=== PATIENT | male | born 1950 | race Caucasian/White ===

== ENCOUNTER 2023-03-27 19:53 | Inpatient (IN) | payer MEDICARE, SELFPAY ==
[2023-03-27] VITALS (10 sets, daily range): BP systolic 110–140; BP diastolic 57–91; BMI 24.2
[2023-03-27 12:47] LABS: Glucose - Point of Care 426 mg/dl (70-99)
[2023-03-27] MEDS: NSS 1000 IV ×2 (12:59→21:48)
[2023-03-27 13:05] LABS: % Basophils 0.6 % (0-2); % Immature Granulocytes 1.8 % (0-0.5); % Lymphocytes 33.1 % (20.5-51.1); % Monocytes 4.2 % (1.7-9.3); % Neutrophils 57.3 % (42.2-75.2); Absolute Eosinophils 0.2 10^3/uL (0-0.7); Absolute Immature Granulocytes 0.1 10^3/uL (0-0.05); Absolute Lymphocytes 1.7 10^3/uL (1.2-3.4); Absolute Monocytes 0.2 10^3/uL (0.1-0.6); Absolute Neutrophils 2.9 10^3/uL (1.4-6.5); Hematocrit 39.6 % (39.0-52.0); Hemoglobin 13.6 g/dL (13.0-18.0); Mean Corp Hgb Conc. 34.3 g/dL (33.0-37.0); Mean Corpuscular Volume 87.4 fL (80.0-94.0); Mean Platelet Volume 8.9 fL (7.4-10.4); Nucleated Red Blood Cells % 0 % (-); Platelet Count 218 10^3/uL (130-400); Red Blood Cell Count 4.53 10^6/uL (4.70-6.10)
[2023-03-27 13:20] LABS: ALT (SGPT) 26 U/L (0-50); AST (SGOT) 23 U/L (17-59); Albumin 4.4 g/dl (3.5-5.0); Alcohol 266 mg/dl; Alkaline Phosphatase 85 U/L (38-126); Blood Urea Nitrogen 23 mg/dl (9-20); Calcium 9.7 mg/dl (8.4-10.2); Carbon Dioxide 19 mmol/L (22-30); Chloride 103 mmol/L (98-107); Estimated Creatinine Clearance 43 ml/min; Glucose 407 mg/dl (70-99); Potassium 5.3 mmol/L (3.5-5.1); Sodium 135 mmol/L (135-145); Total Bilirubin 0.7 mg/dl (0.2-1.3); Total Protein 6.9 g/dl (6.3-8.2); eGFR 49.16
--- NOTE | 2023-03-27 14:28 | ED.GENMED ---
History of Present Illness
General
Chief Complaint: Alcohol Problem
Source: patient
Exam Limitations: none
Time Seen by Provider: 03/27/23 12:46
Nursing documentation reviewed up to this point in time: agreed with
Travel History
Have you had any contact with someone who has COVID-19?: No
Do you have any symptoms of coronavirus? Fever > 100 degrees, chills, cough, shortness of breath, sore throat, loss of taste or smell, muscle aches, or headache?: No
History of Present Illness
History of Present Illness:
72-year-old male with history of IDDM, PE, HTN, Dee's esophagus, GERD, pancreatitis, IDDM, alcohol abuse, anxiety presents via EMS reportedly consuming 1-1/2 bottles of vodka in the past 24 hours, girlfriend called EMS as she checked his blood
sugar and it was reported to be in the 400s, she gave him 10 units of insulin and the blood sugar lowered to the 300s.
He denies any recent contributive factors, states he simply binge drinks every 'once in a while.' The last time he did so was a few months ago. He admits to drinking the vodka. Denies doing any recreational drugs.
Patient denies feeling weak or dizzy, denies headache, chest pain or shortness of breath. Denies abdominal pain. He does feel nauseous.
Past History
Past History
ED Past Medical History: HTN, IDDM, Other (Chronic pancreatitis ) and Other (pancreatitis); Negative KS
ED Past Surgical History: Orthopedic and Urological; Negative Appendectomy, Bowel resection, Brain, Cardiac or Cholecystectomy
Social History
Tobacco: Former smoker
Alcohol: Former
Drug: None
Personal:
Living: with family
Employment: Employed
Family History
Family History: Diabetes
Review of Systems
Review of Systems
Allergies reviewed?: Yes
All Other Systems: ROS reviewed and negative except as documented in HPI and ROS
Constitutional: Denies fever
Respiratory: Denies trouble breathing
Cardiac: Denies chest pain
ABD/GI: Reports nausea; Denies abdominal pain or diarrhea
: Denies dysuria, difficulty voiding or urgency
Musculoskeletal: Reports no symptoms
Skin: Reports no symptoms
Neurological: Reports no symptoms
Psychiatric: Denies no symptoms, depression or anxiety
Phy Exam
Physical Exam
Physical Exam:
GENERAL: No acute distress. A&Ox3.
CONSTITUTIONAL: Afebrile.
EYES: Prosthetic right eye, conjunctivae normal
ENMT: moist mucus membranes, Pharynx nl
RESPIRATORY: Regular respirations, nonlabored, lungs clear.
CARDIOVASCULAR: Regular rate and rhythm, no murmurs, no rubs.
GI: Soft, nontender, normal BS
MUSCULOSKELETAL: Moves with ease. Well perfused.
SKIN: Warm, dry, pink
PSYCH: Normal mood and affect. Well kept, interactive and appropriate
NEUROLOGIC: Awake, alert and oriented. No focal neurological deficits
Scores
Withdrawal Assessment of Alcohol
Withdrawal Assessment Completed?: Yes
Nausea and Vomiting: Intermittent nausea with dry heaves (vomited twice)
Tactile Disturbances: None
Tremor: Moderate, with patient's arms extended
Auditory Disturbances: Not present
Paroxysmal Sweats: No sweat visible
Visual Disturbances: Not present
Anxiety: Mild anxiety
Headache, Fullness in Head: Not present
Agitation: Normal activity
Orientation and clouding of sensorium: Oriented and can do serial additions
Total CIWA Score: 9
Alcohol Withdrawal Medication Recommendation: Equal to MSAS Score 5-7. Lorazepam 1mg IV or PO NOW & re-assess q2hrs
Course
Orders/Labs/Results
Orders:
Orders
03/27/23 12:55
0.9% Sodium Chloride 1000 ml [Nss] 1,000 ml IV BOLUS
03/27/23 12:58
Alcohol Urgent
Complete Blood Count/With Diff Urgent
Comprehensive Metabolic Panel Urgent
Glycohemoglobin (HgbA1c) Urgent
Magnesium Urgent
Comment: ADD ON
Phosphorus Urgent
Comment: ADD ON
03/27/23 14:28
Ondansetron Injectable [Zofran] 4 mg IV NOW STA
03/27/23 14:29
Ondansetron Injectable [Zofran] 4 mg .ROUTE .STK-MED ONE
03/27/23 Dinner
Clear Liquid
At Your Request: Full Participation
03/27/23 16:32
Insulin Aspart [NOVOLOG vial] 8 units SC NOW STA
03/27/23 18:34
Lorazepam [Ativan] 1 mg IV NOW STA
03/27/23 18:50
UA Reflex to Culture [Urinalysis Reflex To Culture] Urgent
03/27/23 18:51
Bedside Glucose Monitoring-ONCE As Directed
03/27/23 19:02
Add On- LAB Routine
Tests Added?: phosphorous, magnesium
03/27/23 19:04
CT Head W/o Iv Contrast Urgent
Comment:
Reason For Exam: s/p fall, hit head
03/27/23 19:06
0.9% Sodium Chloride 500 ml [Nss] 500 ml IV BOLUS
Insulin Glargine Lantus [Lantus] 20 units Subcutaneous Insulin Syringe [Syringe-Insulin] 0 unit SC ONCE
Insulin Glargine Lantus [Lantus] 32 units Subcutaneous Insulin Syringe [Syringe-Insulin] 0 unit SC ONCE
03/27/23 19:07
Admit/Transfer Patient As Directed
Co-Sign Provider:
Level of Care: Inpatient admission
Assign to:: Telemetry
Physician / Group: Kimberly Olivera
Diagnosis: alcohol withdrawal; hyperglycemia
Reason for Telemetry: Chest Pain syndromes
Date to Stop Telemetry: 03/29/23
Time to Stop Telemetry: 11:00
Reason for Hospitalization: alcohol withdrawal; hyperglycemia
Expected length of stay greater than two midnights?: Yes
ELOS- Estimated Length of Stay in days: 3
I certify the patient meets the requirements for IP care: Yes
03/27/23 19:11
Code Status As Directed
Resuscitation Status: Full Code
03/27/23 19:13
Pantoprazole [Protonix IV] 40 mg IV NOW STA
03/27/23 21:11
0.9% Sodium Chloride 1000 ml [Nss] 1,000 ml IV 125 mls/hr
0.9% Sodium Chloride [Nss (Preservative Free)] See Protocol IV PRN PRN
Acetaminophen [Tylenol] 650 mg PO Q4HPRN PRN
Albuterol [ProAIR HFA INHALER] 1 puff INH R Q4HPRN PRN
Dextrose 50%-Water [Dextrose 50% Syringe] 12.5 grams IV [id number] PRN
FOLic ACID [Folvite] 1 mg 0.9% Sodium Chloride 50 ml [Nss] 50 ml IV DAILYPRN
Glucagon [GlucaGen] 1 mg IM PRN PRN
Lorazepam [Ativan] 1 mg IV Q1HPRN PRN
Lorazepam [Ativan] 1 mg PO Q2HPRN PRN
Lorazepam [Ativan] 2 mg IV Q1HPRN PRN
Ondansetron Injectable [Zofran] 4 mg IV Q6HPRN PRN
Thiamine Injection 200 mg IV Q12
03/27/23 21:11
Add On- LAB Routine
Tests Added?: HgbA1C to today's lab
Case Management Consult Once
Case Management Consult: Other
Comment: Substance abuse counseling; also patient states didn't take lantus because insurance didn't cover
DIETARY CONSULT Routine
Reason for Consult: Nutrition support, possible refeeding guidelines
Activity As Directed
Activity Level: As Tolerated
Bedside Glucose Monitoring As Directed
Frequency: AC&HS
Comment: Change to q6h if pt on TPN, tube feeding or not eating
MSAS SCORE As Directed
MSAS Score 0-4: Repeat MSAS every 2 hours until 0-4 for three consecutive assessments, then every 4 hours x 48
hours.
MSAS Score 5-7: For MILD withdrawl symptoms. Repeat MSAS and RASS every 2 hours
MSAS Score 8-11: For MODERATE withdrawal symptoms. Repeat MSAS and RASS every 1 hour. Consider ICU or IMU
level of care.
MSAS Score > 11: For SEVERE withdrawal symptoms. Repeat MSAS and RASS every 1 hour. Notify provider, consider
ICU level of care.
MSAS Additional Instructions: If no improvement or no decrease in score from severe to moderate within 12
hours, consult psychiatry
MSAS Notify Provider: Notify provider if patient requires more than 10 mg of Lorazepam in eight hour period.
Vital Signs As Directed
Frequency: Per unit guidelines
DX Deep Vein Thrombosis Video Routine
03/27/23 22:00
Alprazolam [Xanax] 0.25 mg PO HS
03/28/23 06:31
Complete Blood Count/No Diff IN AM
Comprehensive Metabolic Panel IN AM
Magnesium IN AM
03/28/23 07:30
Insulin Aspart Corrective Mod [Novolog Flexpen-Moderate Resistance] See Protocol SC AC
03/28/23 08:00
Cholecalciferol (Vitamin D3) [VITAMIN D3 (cholecalciferol)] 50 mcg PO DAILY
Cyanocobalamin [Vitamin B-12] 1,000 mcg PO DAILY
FOLic ACID [Folvite] 1 mg PO DAILY
Heparin 5,000 units SC Q12
Metoprolol [Lopressor] 50 mg PO BID
03/28/23 22:00
insulin glargine-yfgn 25 unit SC HS
03/29/23 11:00
DC Protocol for Telemetry ONCE
03/30/23 20:00
Thiamine HCl [Vitamin B1] 100 mg PO BID
Abnormal Lab Results
03/27/23 03/27/23 03/27/23
12:45 12:58 16:27
RBC 4.53 L 10^6/uL
(4.70-6.10)
Abs Immat Gran (auto) 0.1 H 10^3/uL
(0-0.05)
Immature Gran % 1.8 H %
(0-0.5)
Potassium 5.3 H mmol/L
(3.5-5.1)
Carbon Dioxide 19 L mmol/L
(22-30)
BUN 23 H mg/dl
(9-20)
Creatinine 1.5 H mg/dL
(0.7-1.3)
Glucose 407 H mg/dl
(70-99)
POC Glucose 426 H mg/dl 345 H mg/dl
(70-99) (70-99)
03/27/23 03/27/23 03/27/23
17:33 17:52 19:12
RBC
Abs Immat Gran (auto)
Immature Gran %
Potassium
Carbon Dioxide
BUN
Creatinine
Glucose
POC Glucose 367 H mg/dl 317 H mg/dl 281 H mg/dl
(70-99) (70-99) (70-99)
03/27/23 12:58
03/27/23 12:58
Vital Signs
Initial and Last Documented VS:
Initial Vital Signs
BP
132/77
03/27/23 12:39
Last Documented Vital Signs
Temp Pulse Resp BP Pulse Ox
98.0 F 76 18 143/86 94
03/28/23 05:00 03/28/23 05:00 03/28/23 03:45 03/28/23 03:45 03/28/23 03:45
MDM/Problems Addressed
Differential Diagnosis Includes:
Alcohol poisoning, alcohol withdrawal, hyperglycemia, DKA
MDM/Problems Addressed:
72-year-old male with history of IDDM, PE, HTN, Dee's esophagus, GERD, pancreatitis, IDDM, alcohol abuse, anxiety presents via EMS reportedly consuming 1-1/2 bottles of vodka in the past 24 hours, girlfriend called EMS as she checked his blood
sugar and it was reported to be in the 400s, she gave him 10 units of insulin and the blood sugar lowered to the 300s.
He denies any recent contributive factors, states he simply binge drinks every 'once in a while.' The last time he did so was a few months ago. He admits to drinking the vodka. Denies doing any recreational drugs.
Patient denies feeling weak or dizzy, denies headache, chest pain or shortness of breath. Denies abdominal pain. He does feel nauseous.
Afebrile, alert and oriented, not ill-appearing
Refusing to speak to [facility]ares
03/27/2023 1345 PM
CBC normal
CMP: Consistent with his baseline kidney disease with dehydration. IV fluids infusing
Gap is 13
No DKA
03/27/2023 1428 PM
Vomiting. Zofran ordered
03/27/2023 1623 PM
After 1 L of fluid IV, fingerstick blood sugar 345
03/27/2023 1837 PM
After IV fluids and insulin 8 units subq, glucose 317
now at bedside states she is not taking him home as he has been incontinent of urine and stool, he is a chronic alcoholic, he has been through DTs before and admitted to the hospital, he is starting to tremor, alcohol withdrawal score 9 equal
to MSAS score 5-7
Will admit for hyperglycemia in a diabetic patient, alcohol withdrawal
Hospitalist notified of admission.
*Critical Care Note
Total Time (30-74mins, 75-104mins- exclusive of procedures): Not Applicable
ED Attending Note
-
Portions of this chart may have been created with voice recognition software.� Occasional wrong word or��sound alike� substitutions may have occurred due to the inherent limitations of voice recognition software.
Discharge Plan
Departure
Patient Disposition: Admit
Date of Disposition: 03/27/23
Time of Disposition: 18:35
Admit to: Med/Surg
Presentation/result/management discussed w/ accepting MD/DO: Hospitalist
Condition: Fair
Discharge Problem:
Alcohol withdrawal, Hyperglycemia due to diabetes mellitus
Interventions
Interventions:
*Risk Screen - Suicide Last Done: 03/27/23 21:16
*General Assessment Last Done: 03/27/23 12:41
*Neglect/Abuse Screening Last Done: 03/27/23 12:41
ED- Fall Risk Assessment Last Done: 03/27/23 20:53
*ED COVID-19 Vaccine History Last Done: 03/27/23 21:16
*Nursing Disposition Last Done: 03/27/23 20:53
ED- Neurological Assessment Last Done: 03/27/23 13:11
ED-Psychological Assessment Last Done: 03/27/23 13:11
Discharge Date and Time
Discharge Date/Time: 03/27/23 21:09
[2023-03-27] MEDS: ZOFRAN 4 MG IV (14:31)
[2023-03-27 16:28] LABS: Glucose - Point of Care 345 mg/dl (70-99)
[2023-03-27] MEDS: NOVOLOG vial 8 UNITS SC (16:49)
[2023-03-27 17:34] LABS: Glucose - Point of Care 367 mg/dl (70-99)
[2023-03-27 17:53] LABS: Glucose - Point of Care 317 mg/dl (70-99)
--- NOTE | 2023-03-27 18:45 | HPS.HSE ---
Addendum entered and electronically signed by Kimberly Olivera MD 03/27/23 19:27:
BGL 281; OK for clears
Original Note:
Family Physician
-
Family Physician: José Miguel Delacruz
Chief Complaint
-
alcohol withdrawal
History of Present Illness
Mr. Prosper Barnett is a 72 yo man with hx essential HTN, GERD, Dee's esophagus, PE, alcohol abuse, pancreatitis, DM2 presents to the ER after an episode of binge drinking and hyperglycemia.
Patient states he drank two liters of vodka yesterday into this morning. Prior to that his last drinking episode was 1-2 months ago. Patient states that he has not been accepting of resources for alcoholism in the past. He lives with his
girlfriend who states the he was falling multiple times upstairs and he hit his head. He had also had bowel incontinence. She checked his blood sugar and it was elevated. She was worried about his state and called 911. Patient had nausea and
vomiting here in the ER.
Currently patient denies headache, no lightheadedness or dizziness. He denies chest pain or shortness of breath. He has no abdominal pain except need to urinate. No LE swelling. No rash.
Medical History
Past Medical History
Past Medical History: Reports Other
Additional Past Medical History:
Hypertension
DM-II
Alcohol Use Disorder
History of Substance Use Disorder
Prostate Cancer
GERD / Dee's Esophagus
Pancreatitis
Past Surgical History: Reports Other
Additional Past Surgical History:
Prostatectomy
R Shoulder Arthroplasty
Left Knee Arthroscopy
R Glass Eye
Social History
Tobacco: Smoker (Smokes a few cigars daily.)
Alcohol: Binge drinker
Drug: Former User (Patient cites remote history of myriad drug abuses - including prior IVDA - all in his youth and none in many years according to him.)
Personal:
Living: With Family
Family History
Family History: Not pertinent
Allergies / Home Medications
Allergies reflects when Allergies were last updated in [facility].
Home Medications with original date entered in [facility]
Allergy/Medication List:
Allergies
Allergy/AdvReac Type Severity Reaction Status Date / Time
No Known Allergies Allergy Verified 03/27/23 12:41
Home Medications
atenolol 50 mg tablet 50 mg PO DAILY 08/02/10
esomeprazole magnesium 20 mg capsule,delayed release (Nexium) 40 mg PO DAILY 07/08/18
alprazolam 0.25 mg tablet 0.25 mg PO BID PRN anxiety 08/07/18
cholecalciferol (vitamin D3) 25 mcg (1,000 unit) tablet 2,000 units PO DAILY 08/07/18
cyanocobalamin (vitamin B-12) 1,000 mcg tablet 1,000 mcg PO DAILY 03/16/21
ferrous sulfate 325 mg (65 mg iron) tablet (Iron (ferrous sulfate)) 325 mg PO DAILY 03/16/21
magnesium oxide 400 mg PO DAILY 03/16/21
albuterol sulfate 90 mcg/actuation aerosol inhaler 1 puff inhalation R Q4 PRN sob/wheezing 03/27/23
insulin glargine-yfgn 100 unit/mL (3 mL) subcutaneous pen 32 unit SC HS 03/27/23
insulin lispro 100 unit/mL subcutaneous solution (Humalog U-100 Insulin) 0 sliding scale dose SC MEALS sliding scale 03/27/23
metformin 1,000 mg tablet 1,000 mg PO DAILY 03/27/23
Review of Systems
-
History Source: Patient
A 12 point ROS was completed and negative except as noted: Yes
Physical Exam
Vital Signs
Vital Signs
Temp Pulse Resp BP Pulse Ox
98.7 F 90 16 134/57 96
03/27/23 12:41 03/27/23 18:15 03/27/23 18:15 03/27/23 18:00 03/27/23 13:00
Physical Exam
General: No Apparent Distress
HEENT: Other (R glass eye, neck supple)
Respiratory: Clear; No Wheezes
Cardiac: Regular Rhythm
GI: Soft and Non Tender
Musculoskeletal: No Edema
Skin: Warm and Dry; No Rash
Neuro: Awake, Alert and Oriented
Psych: Calm; No Intact Judgment/Insight
Laboratory Results
-
03/27/23 12:58
03/27/23 12:58
Laboratory Results
Total Bilirubin 0.7 mg/dl (0.2-1.3) 03/27/23 12:58
AST 23 U/L (17-59) 03/27/23 12:58
ALT 26 U/L (0-50) 03/27/23 12:58
Alkaline Phosphatase 85 U/L (38-126) 03/27/23 12:58
Data Reviewed
-
Diagnostic Radiology: Report Reviewed by me
Lab Data: Labs Reviewed by me
Impression/Plan
-
Mr. Prosper Barnett is a 72 yo man with hx essential HTN, GERD, Dee's esophagus, PE, alcohol abuse, pancreatitis, DM2 presents to the ER after an episode of binge drinking and hyperglycemia.
Triage VS: T 98.7, P 90, RR 16, BP 134/57, SpO2 96%
LABS: WBC 5.0, Hg 13.6, PLT 218, Na 135, K+ 5.3, CO2 19, Cr 1.5, Glucose 407; AG = 13
MAR: 1L IVF; zofran 4mg IV x 1; aspart 8 units x 1 ativan 1mg IV x 1
Alcohol Withdrawal
-patient reports binge drinking with episode of 1-2 months sobriety before
-receiving ativan 1mg IV x 1 now
-admit to telemetry
-MSAS protocol
-add on mag, phos
-IVF
- consult for resources on substance abuse (although patient states he won't go because he works 6 days a week)
-obtain head CT given patient fell and hit head
IDDM
Hyperglycemia without DKA
-AG 13, obtaining UA
-repeat finger stick now
-IVF as above (1.5L in ER)
-patient states he has not taken Lantus for one week because his insurance is no longer covering it. 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
-give lantus now (20 units given mild SANJEEV and NPO status - adjust as needed)
-ISS moderate
-hold [employer] metformin
Acute Kidney Injury
-in setting of dehydration 2/2 alcohol use; decreased PO intake and vomiting
-IVF as above
Mild hyperK
-should correct with fluids and treatment of SANJEEV, monitor
HTN
-hold [employer] Atenolol with SANJEEV; will replace with metoprolol
DVT PPx hep subQ
FULL CODE
[2023-03-27] MEDS: ATIVAN 1 MG IV (19:09)
[2023-03-27 19:14] LABS: Glucose - Point of Care 281 mg/dl (70-99)
[2023-03-27 19:33] LABS: Magnesium 1.8 mg/dl (1.6-2.3); Phosphorus 4.5 mg/dl (2.5-4.5)
[2023-03-27] MEDS: NSS 500 IV (20:22)
[2023-03-27] MEDS: PROTONIX IV 40 MG IV (20:22)
[2023-03-27] MEDS: XANAX 0.25 MG PO (21:46)
[2023-03-27] MEDS: ATIVAN 1 MG PO (21:46)
[2023-03-27] MEDS: THIAMINE INJECTION 200 MG IV (21:47)
[2023-03-27 22:16] LABS: Glucose - Point of Care 200 mg/dl (70-99)
[2023-03-27] MEDS: LANTUS 0.200000000000000011 UNITS SC (22:59)
[2023-03-28 03:45] VITALS: BP 143/86
--- NOTE | 2023-03-28 03:51 | PTCARENOTE ---
recieved patient from ER. AAOX 3. Patient ambulated form stretcher to bed with assist x 1 and walker. Vital signs taken BP 140/91, p 80, Temp 98.0 . Patient oriented to room. Will continue with patients plan of care.
[2023-03-28 07:00] LABS: Hematocrit 27.5 % (39.0-52.0); Mean Corp Hgb Conc. 34.5 g/dL (33.0-37.0); Mean Corpuscular Volume 86.8 fL (80.0-94.0); Mean Platelet Volume 9.1 fL (7.4-10.4); Platelet Count 134 10^3/uL (130-400); Red Blood Cell Count 3.17 10^6/uL (4.70-6.10); Red Cell Dist. Width 12.8 % (11.5-14.5); White Blood Cell Count 5.5 10^3/uL (4.8-10.8)
[2023-03-28 07:17] LABS: Hemoglobin 9.5 g/dL (13.0-18.0)
[2023-03-28 07:30] VITALS: BP 136/90
[2023-03-28 07:34] LABS: ALT (SGPT) 15 U/L (0-50); AST (SGOT) 16 U/L (17-59); Albumin 2.5 g/dl (3.5-5.0); Alkaline Phosphatase 51 U/L (38-126); Blood Urea Nitrogen 22 mg/dl (9-20); Calcium 7.4 mg/dl (8.4-10.2); Carbon Dioxide 20 mmol/L (22-30); Chloride 109 mmol/L (98-107); Estimated Creatinine Clearance 59 ml/min; Glucose 163 mg/dl (70-99); Magnesium 1.4 mg/dl (1.6-2.3); Potassium 3.8 mmol/L (3.5-5.1); Sodium 136 mmol/L (135-145); Total Bilirubin 0.8 mg/dl (0.2-1.3); Total Protein 4.5 g/dl (6.3-8.2); eGFR > 60.00
[2023-03-28 07:47] LABS: Glucose - Point of Care 181 mg/dl (70-99)
[2023-03-28] MEDS: NSS 1000 IV (08:04)
[2023-03-28] MEDS: NOVOLOG FLEXPEN-LOW RESISTANCE 1 UNITS SC (08:07)
[2023-03-28] MEDS: LOPRESSOR 50 MG PO ×2 (08:22→20:07)
[2023-03-28] MEDS: VITAMIN D3 (cholecalciferol) 50 MCG PO (08:23)
[2023-03-28] MEDS: VITAMIN B-12 1000 MCG PO (08:23)
[2023-03-28] MEDS: FOLVITE 1 MG PO (08:23)
[2023-03-28] MEDS: NSS (PRESERVATIVE FREE) 10 ML IV (08:24)
[2023-03-28] MEDS: PROTONIX IV 40 MG IV (08:24)
[2023-03-28] MEDS: HEPARIN 5000 UNITS SC ×2 (08:27→20:09)
[2023-03-28] MEDS: THIAMINE INJECTION 200 MG IV ×2 (08:27→20:09)
[2023-03-28] MEDS: FLUSH (NSS) 2 FLUSH IV (08:29)
[2023-03-28 09:11] LABS: Glycohemoglobin (HgbA1c) 10.7 % (4.0-5.6)
[2023-03-28 10:46] LABS: Urine Albumin Trace (Neg - Trace); Urine Bilirubin Negative (Negative); Urine Character Clear (Clear); Urine Color Yellow; Urine Glucose 3+ (Negative); Urine Ketone Negative (Negative); Urine Leukocyte Negative (Negative); Urine Nitrite Negative (Negative); Urine Occult Blood Negative (Negative); Urine Urobilinogen Negative (Neg - 1+)
[2023-03-28 11:00] VITALS: BP 146/73
[2023-03-28 12:03] LABS: Glucose - Point of Care 222 mg/dl (70-99)
--- NOTE | 2023-03-28 12:37 | W.PN.HOSP.TC ---
Today's Communication/Plan
-
see A/P
Assessment / Plan
Assessment / Plan
72 yo man with hx essential HTN, GERD, Dee's esophagus, PE, alcohol abuse, pancreatitis, DM2 presented to the ER after an episode of binge drinking and hyperglycemia. �
Patient stated he drank two liters of vodka and prior to that his last drinking episode was 1-2 months ago.�
He lives with his girlfriend who stated the he was falling multiple times upstairs and he hit his head.�He had also had bowel incontinence.�She checked his blood sugar and it was elevated.� She was worried about his state and called 911.� Patient
had nausea and vomiting in the ER.
A/P:
# Alcohol intoxication, monitor for withdrawal
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
His drinking pattern is cyclical of binge drinking followed by 1-2 months sobriety
Alcohol level 266 on admission
Cont [facility] protocol for alcohol withdrawal
s/p IVF
Pt declined outpt resources for substance abuse
head CT obtained showed no acute intracranial hemorrhage.
PT OT eval
# IDDM
# Hyperglycemia POA without DKA
s/p IVF
patient states he has not taken Lantus for 1-2 weeks because his pharmacy no longer carries it.�
He is able to afford insulin but is pending the correct insulin to be sent to his pharmacy.
Cont Lantus, adjusted 25 units HS (BAG MAKER 32 units HS)
Cover with ISS moderate
hold BAG MAKER metformin
A1C 10.7%
DM FORMULA WEIGHER CS
# Drop in Hgb likely due to dilutional effect from IVF
Hgb 13.6 -> 9.5
Check Hematest stool
cont to monitor Hgb
# Hypomagnesemia
replace IV
# Resolved Acute Kidney Injury following IVF
# Mild hyperK
Resolved
# HTN
BAG MAKER Atenolol was replaced with metoprolol
DVT PPx hep subQ
FULL CODE
DW CM
Anticipated Discharge: 24 - 48 hours
Subjective/Interval History
-
Date of Service: March 28, 2023
Objective Data
-
Labs:
Laboratory Results
03/28/23
06:31
WBC 5.5
Hgb 9.5 L D
Hct 27.5 L
Plt Count 134 D
Sodium 136
Potassium 3.8 D
Chloride 109 H
Carbon Dioxide 20 L
BUN 22 H
Creatinine 1.1
Glucose 163 H
Calcium 7.4 L D
Total Bilirubin 0.8
AST 16 L
ALT 15
Alkaline Phosphatase 51
Vital Signs:
Vital Signs
Temp Pulse Resp BP Pulse Ox
36.9 C 67 18 146/73 97
03/28/23 11:00 03/28/23 11:00 03/28/23 11:00 03/28/23 11:00 03/28/23 11:00
I&O
03/27/23 03/28/23 03/29/23
06:59 06:59 06:59
Intake Total 480 / 480 850 / 850
Output Total 300 / 300
Balance 180 / 180 850 / 850
Review of Systems
-
History Source: Patient
All other systems: Reviewed and negative
Physical Exam
-
General: Well Developed, Well Nourished, No Apparent Distress, Comfortable and Conversant
HEENT: Normocephalic, Atraumatic, Moist Mucous Membranes, Nose Appears Normal and Ears Appear Normal
Respiratory: Clear to Auscultation and Non Labored Respirations; Negative Accessory Resp Muscle Use
Cardiac: Regular Rhythm and S1/S2
Musculoskeletal: No Clubbing and No Cyanosis
Skin: Negative Rash
Neuro: Awake and Alert
Psych: Calm and Intact Judgement/Insight
Data Reviewed
-
Labs: Labs Reviewed by me
[2023-03-28] MEDS: MAGNESIUM SULFATE 50 IV (13:03)
[2023-03-28] MEDS: NOVOLOG FLEXPEN-LOW RESISTANCE 2 UNITS SC ×2 (13:10→17:33)
--- NOTE | 2023-03-28 13:11 | PN.DE.MGMTRT ---
Insulin Management
- -
03/28/2023: Diabetes Management Consult
72 year old male admitted for Acute Alcohol intoxication with Hyperglycemia.
PMH includes: HTN, GERD, Dee's esophagus, PE, alcohol abuse, pancreatitis and T2DM.
DM management consult placed for affordable insulin options. Pt states that he was taking Humalog SSI and Glargine 32 units @ HS. Says he was notified by his pharmacy that the glargine was no longer a preferred insulin by his insurance and was no
longer covered, he has not taken his long acting insulin for >2 weeks.
A1C 10.7%, Cr 1.5-->1.1 today, eGFR>60. Pt is currently on low corrective insulin and Lantus 20 units, has been increased to [address] Agustin.
Glucose has remained elevated. Will add AC NovoLog 6 units. Cont low corrective, change diet to 1800 ADA.
Spoke to pt's [facility] and confirmed that Lantus solo star is now the preferred basal insulin under pt's insurance coverage plan.
d/w pt and Hospitalist Dr. Agustin, will add Lantus solo star the preferred insulin to his amb orders.
Diabetes History
- -
Type of Diabetes: 2 requiring insulin
Pre-Admission Diabetes Regimen
03/27/23 03/28/23
12:58 06:31
Creatinine 1.5 H 1.1
Lab Results
Hemoglobin A1c 10.7 % (4.0-5.6) H 03/27/23 12:58
Insulin Pump Settings
IP Diabetes Regimen
03/27/23 03/27/23 03/27/23
12:58 16:27 17:33
Glucose 407 H
POC Glucose 345 H 367 H
03/27/23 03/27/23 03/27/23
17:52 19:12 22:15
Glucose
POC Glucose 317 H 281 H 200 H
03/28/23 03/28/23 03/28/23
06:31 07:43 11:59
Glucose 163 H
POC Glucose 181 H 222 H
Patient Education
[2023-03-28 15:50] VITALS: BP 179/83
--- NOTE | 2023-03-28 16:26 | CM ---
met with patient at bedside.he [place] with his girlfriend [place] with 2 steps to enter.his bed and bath is on the second level.he is totally I.is pcp is dr evans and he has changed his pharmacy to [facility] on [address] since his previous pharmacy
was not able to have his lantus insulin avaialble to him.patient is adm with alcohol intoxication and multiple falls at home.i have spoken to patient about alcohol counseling and he has declined further assistance.he states he drinks heavily for 2
months then abstains for next 2 months and this is his pattern.patient will discharge home with no needs.
Plan discharge home when stable with no needs.
[2023-03-28 16:34] LABS: Glucose - Point of Care 235 mg/dl (70-99)
[2023-03-28] MEDS: NOVOLOG FLEXPEN 6 UNITS SC (17:34)
[2023-03-28 19:00] VITALS: BP 154/91
[2023-03-28 20:42] LABS: Glucose - Point of Care 166 mg/dl (70-99)
[2023-03-28] MEDS: MELATONIN 5 MG PO (22:04)
[2023-03-28] MEDS: LANTUS 0.25 UNITS SC (22:04)
[2023-03-28] MEDS: XANAX 0.25 MG PO (22:04)
[2023-03-28 23:00] VITALS: BP 138/79
[2023-03-29 03:00] VITALS: BP 132/70
[2023-03-29 07:30] VITALS: BP 143/85
[2023-03-29 07:33] LABS: Glucose - Point of Care 166 mg/dl (70-99)
[2023-03-29 08:14] LABS: Hematocrit 33.4 % (39.0-52.0); Hemoglobin 12.2 g/dL (13.0-18.0); Mean Corp Hgb Conc. 36.5 g/dL (33.0-37.0); Mean Corpuscular Hgb 31.5 pg (27.0-31.0); Mean Corpuscular Volume 86.3 fL (80.0-94.0); Mean Platelet Volume 9.1 fL (7.4-10.4); Platelet Count 152 10^3/uL (130-400); Red Blood Cell Count 3.87 10^6/uL (4.70-6.10); Red Cell Dist. Width 12.9 % (11.5-14.5); White Blood Cell Count 6.4 10^3/uL (4.8-10.8)
--- NOTE | 2023-03-29 08:30 | PN.DE.MGMTRT ---
Insulin Management
- -
03/28/2023: Diabetes Management Consult
72 year old male admitted for Acute Alcohol intoxication with Hyperglycemia.
PMH includes: HTN, GERD, Dee's esophagus, PE, alcohol abuse, pancreatitis and T2DM.
DM management consult placed for affordable insulin options. Pt states that he was taking Humalog SSI and Glargine 32 units @ HS. Says he was notified by his pharmacy that the glargine was no longer a preferred insulin by his insurance and was no
longer covered, he has not taken his long acting insulin for >2 weeks.
A1C 10.7%, Cr 1.5-->1.1 today, eGFR>60. Pt is currently on low corrective insulin and Lantus 20 units, has been increased to [address] Agustin.
Glucose has remained elevated. Will add AC NovoLog 6 units. Cont low corrective, change diet to 1800 ADA.
Spoke to pt's [facility] and confirmed that Lantus solo star is now the preferred basal insulin under pt's insurance coverage plan.
d/w pt and Hospitalist Dr. Agustin, will add Lantus solo star the preferred insulin to his amb orders.
03/29/2023: Diabetes Management F/U:
pt was started on AC NovoLog, received 1st dose of 6 units at dinner time, HS glucose acceptable at 166, however, FBG 242 this AM
Will increase Lantus to 27 units. Cont AC NovoLog 5 units and low corrective insulin with meals.
Will closely monitor and adjust further as necessary.
Please make note that Lantus solo star is the preferred basal insulin under pt's insurance coverage plan
Pt stable for d/d home from diabetes stand point.
Diabetes History
- -
Type of Diabetes: 2
Pre-Admission Diabetes Regimen
Lab Results
Hemoglobin A1c 10.7 % (4.0-5.6) H 03/27/23 12:58
Insulin Pump Settings
IP Diabetes Regimen
02/03/28/23 03/28/23
11:59 16:32 20:41
POC Glucose 222 H 235 H 166 H
03/29/23
07:17
POC Glucose 166 H
Meal type: Lunch
Amount consumed: 100%
Patient Education
[2023-03-29 08:52] LABS: ALT (SGPT) 21 U/L (0-50); AST (SGOT) 26 U/L (17-59); Albumin 3.5 g/dl (3.5-5.0); Alkaline Phosphatase 68 U/L (38-126); Blood Urea Nitrogen 18 mg/dl (9-20); Calcium 8.9 mg/dl (8.4-10.2); Carbon Dioxide 24 mmol/L (22-30); Chloride 100 mmol/L (98-107); Estimated Creatinine Clearance 46 ml/min; Glucose 242 mg/dl (70-99); Potassium 4.1 mmol/L (3.5-5.1); Sodium 133 mmol/L (135-145); Total Bilirubin 1.1 mg/dl (0.2-1.3); Total Protein 5.8 g/dl (6.3-8.2)
[2023-03-29] MEDS: NOVOLOG FLEXPEN 6 UNITS SC ×2 (09:44→13:42)
[2023-03-29] MEDS: NOVOLOG FLEXPEN-LOW RESISTANCE 1 UNITS SC (09:44)
[2023-03-29] MEDS: FOLVITE 1 MG PO (09:56)
[2023-03-29] MEDS: LOPRESSOR 50 MG PO (09:57)
[2023-03-29] MEDS: NSS (PRESERVATIVE FREE) 10 ML IV (09:57)
[2023-03-29] MEDS: VITAMIN B-12 1000 MCG PO (09:57)
[2023-03-29] MEDS: PROTONIX IV 40 MG IV (09:57)
[2023-03-29] MEDS: HEPARIN 5000 UNITS SC (09:57)
[2023-03-29] MEDS: THIAMINE INJECTION 200 MG IV (09:57)
[2023-03-29] MEDS: VITAMIN D3 (cholecalciferol) 50 MCG PO (09:57)
[2023-03-29 10:03] VITALS: BP 179/89
[2023-03-29 11:00] VITALS: BP 142/93
[2023-03-29 11:45] LABS: Glucose - Point of Care 289 mg/dl (70-99)
--- NOTE | 2023-03-29 12:43 | W.DS.TRANS ---
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
-
Discharge Instructions:
Discharge Diagnosis/Procedures Alcohol intoxication
Diet Diabetic, Carb Controlled
Instructions:
Stand-Alone Forms:
Changes to Home Medications: No
Discharge Medications:
DC Medications w/original date entered in [facility]
atenolol 50 mg tablet 50 mg PO DAILY Blood Pressure 08/02/10
esomeprazole magnesium 20 mg capsule,delayed release (Nexium) 40 mg PO DAILY Gastrointestinal Issue 07/08/18
alprazolam 0.25 mg tablet 0.25 mg PO BID PRN anxiety 08/07/18
cholecalciferol (vitamin D3) 25 mcg (1,000 unit) tablet 2,000 units PO DAILY Supplement 08/07/18
cyanocobalamin (vitamin B-12) 1,000 mcg tablet 1,000 mcg PO DAILY Supplement 03/16/21
ferrous sulfate 325 mg (65 mg iron) tablet (Iron (ferrous sulfate)) 325 mg PO DAILY Supplement 03/16/21
magnesium oxide 400 mg PO DAILY Supplement 03/16/21
albuterol sulfate 90 mcg/actuation aerosol inhaler 1 puff inhalation R Q4 PRN sob/wheezing 03/27/23
metformin 1,000 mg tablet 1,000 mg PO DAILY Diabetes 03/27/23
pen needle, diabetic 32 gauge x 5/32' (BD Ultra-Fine Marylou Pen Needle) #200 ea 03/28/23
insulin glargine 100 unit/mL (3 mL) subcutaneous pen (Basaglar KwikPen U-100 Insulin) 27 unit (0.27 mL) SC DAILY #5 ea 03/29/23
insulin lispro 100 unit/mL subcutaneous pen (Humalog KwikPen (U-100) Insulin) 5 unit (0.05 mL) SC AC #5 ea 03/29/23
Home Medication Changes
Pending Results: No
--- NOTE | 2023-03-29 13:07 | CM ---
Patient for d/c home today.
IMM completed.
Patient denies home care needs.
Plan: home no needs
[2023-03-29] MEDS: NOVOLOG FLEXPEN-LOW RESISTANCE 3 UNITS SC (13:41)
[2023-03-29] MEDS: PREVNAR 20 0.5 ML IM (13:42)
--- NOTE | 2023-03-29 13:59 | PTCARENOTE ---
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 Patient questioned if he should continue lantus. [place] texted Dr. Templeton
--- NOTE | 2023-03-29 14:24 | PTCARENOTE ---
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
== END 2023-03-29 14:10 | disposition home or self-care (01) | DRG 897 ==
LOC: 4 WEST ACU 19:53
PROVIDERS: Internal Medicine; Registered Nurse; ADMITTING PHYSICIAN Student in an Organized Health Care Education/Training Program; ATTENDING PHYSICIAN Internal Medicine; EMERGENCY PHYSICIAN Emergency Medicine; FAMILY PHYSICIAN Internal Medicine
DX: F10.129 Alcohol abuse with intoxication, unspecified (principal); N17.9 Acute kidney failure, unspecified; I10 Essential (primary) hypertension; F10.139 Alcohol abuse with withdrawal, unspecified; K21.9 Gastro-esophageal reflux disease without esophagitis; K22.70 Barrett's esophagus without dysplasia; F17.200 Nicotine dependence, unspecified, uncomplicated; Z86.711 Personal history of pulmonary embolism; Y90.8 Blood alcohol level of 240 mg/100 ml or more; Z79.4 Long term (current) use of insulin; E11.9 Type 2 diabetes mellitus without complications; E83.42 Hypomagnesemia
CPT/HCPCS: 70450; 80053; 81003; 82077; 82962; 83036; 83735; 84100; 85025; 85027; 90677; 96372; 96374; 96375; 97161; 97165; 99284; G0009

== ENCOUNTER → 2024-05-19 07:01 | Outpatient (REF) | payer MEDICARE, SELFPAY | LOC: HWRAD 07:01 | PROVIDERS: ATTENDING PHYSICIAN Internal Medicine Nephrology; FAMILY PHYSICIAN Internal Medicine | DX: N18.31 Chronic kidney disease, stage 3a (principal) | CPT/HCPCS: 76775 ==